=== PATIENT | male | born 1975 | race Caucasian/White ===

== ENCOUNTER 2024-10-18 16:28 | Emergency (ER) | payer BC, OTHER ==
[2024-10-18] MEDS: Diphtheria,Pertussis(Acell),Tetanus Vaccine 0.5 ML Syringe IM ONE (17:00)
== END 2024-10-18 16:55 | disposition home or self-care (01) ==
LOC: JD.ED 16:28
DX: S60.457A Superficial foreign body of left little finger, initial encounter (principal)
CPT/HCPCS: 90471; 90715; 99283; 99284-25